=== PATIENT | male | born 1970 | race Caucasian/White ===

== ENCOUNTER 2021-02-16 05:27 | Emergency (ER) | payer SELFPAY ==
[~2021-02-16] VITALS: Ht 182 cm; Wt 117.9 kg
[2021-02-16] MEDS ORDERED: LACTATED RINGERS 1,000 ML IV STA (05:30)
[2021-02-16] MEDS ORDERED: LACTATED RINGERS 1,000 ML IV ONE (05:30)
[2021-02-16] MEDS ORDERED: fentaNYL INJ 100 MCG/2 ML AMP IVP ONE (05:30)
[2021-02-16] MEDS ORDERED: ONDANSETRON 4 MG/2 ML (SDV) Z0FRAN IVP ONE (05:30)
[2021-02-16] MEDS ORDERED: FAMOTIDINE 20MG/2ML IV (PEPCID) IVP ONE (05:30)
--- NOTE | 2021-02-16 05:36 | ED Abdominal Pain ---
General Chief Complaint: Abdominal/GI Problems Stated Complaint: N/V/D Source of Information: Patient, EMS Exam Limitations: No Limitations (ROBINA PALENCIA) History of Present Illness Date Seen by Provider: Feb 16, 2021 Time Seen by Provider: 05:20 Initial Comments Patient arrives ER by [facility] from [place], [place] with chief complaint 12 hours of nausea vomiting diarrhea. He started having pain after retching in his chest substernal midline reproducible to direct palpation as well as his low back. His had the same symptoms about a day or so ago and her symptoms dahl ve already resolved. He had no fever or bloody diarrhea or hematemesis. No significant medical history known. He took some Imodium earlier. No abdominal surgeries. No cough, shortness of air, history of coronary disease, hypertension, hyperlipidemia, diabetes. Last use IV meth 2 days ago. (ROBINA PALENCIA) Allergies and Home Medications Allergies Coded Allergies: No Known Drug Allergies (Unverified , 02/16/21) Home Medications Famotidine 20 Mg Tablet, 20 MG PO BID Prescribed by: GREGORY LIN on 02/16/21 0736 Ondansetron 4 Mg Tab.rapdis, 4 MG SL Q4H PRN for NAUSEA/VOMITING Prescribed by: GREGORY LIN on 02/16/21 0736 Patient Home Medication List Home Medication List Reviewed: Yes (ROBINA PALENCIA) Review of Systems Review of Systems Constitutional: No chills; dizziness; No fever EENTM: No Blurred Vision, No Double Vision, No Eye Pain Respiratory: Denies Cough, Denies Shortness of Air Cardiovascular: See HPI, Chest Pain; Denies Edema, Denies Irregular Heart Rate; Lightheadedness Gastrointestinal: Abdominal Pain; Denies Constipated; Diarrhea, Nausea, Poor Fluid Intake, Vomiting Genitourinary: Denies Burning, Denies Discharge Musculoskeletal: see HPI, back pain; No joint pain (ROBINA PALENCIA) All Other Systems Reviewed Negative Unless Noted: Yes (ROBINA PALENCIA) Past Hhsmrjz-Bogsch-Wcxefz Hx Patient Social History Alcohol Use: Denies Use Drug of Choice: IV meth Smoking Status: Current Everyday Smoker (ROBINA PALENCIA) Physical Exam Vital Signs Vital Signs - First Documented 02/16/21 05:27 Temp 35.9 Pulse 90 Resp 22 B/P (MAP) 124/91 (102) O2 Delivery Room Air (GREGORY HARE MD) Vital Signs Capillary Refill : (ROBINA PALENCIA) Height/Weight/BMI Height: '" Weight: lbs. oz. kg; BMI Method: General Appearance: WD/WN, moderate distress (Writhing in pain) HEENT: PERRL/EOMI, normal ENT inspection, pharynx normal Neck: full range of motion, normal inspection Respiratory: lungs clear, normal breath sounds, no respiratory distress, no accessory muscle use Cardiovascular: normal peripheral pulses, regular rate, rhythm, no edema Gastrointestinal: normal bowel sounds (Active), soft, no organomegaly; No guarding, No rebound; tenderness (All 4 quadrants), other (Negative for Quezada sign or McBurney's point rebound tenderness) Extremities: normal range of motion, non-tender, normal capillary refill Neurologic/Psychiatric: alert, normal mood/affect, oriented x 3 Skin: normal color, warm/dry (ROBINA PALENCIA) Progress/Results/Core Measures Results/Orders Lab Results Laboratory Tests Test 02/16/21 05:28 02/16/21 07:25 Range/Units White Blood Count 12.0 H 4.3-11.0 10^3/uL Red Blood Count 6.30 H 4.30-5.52 10^6/uL Hemoglobin 19.3 H 13.3-17.7 g/dL Hematocrit 58 H 40-54 % Mean Corpuscular Volume 93 80-99 fL Mean Corpuscular Hemoglobin 31 25-34 pg Mean Corpuscular Hemoglobin Concent 33 32-36 g/dL Red Cell Distribution Width 13.2 10.0-14.5 % Platelet Count 322 130-400 10^3/uL Mean Platelet Volume 8.6 L 9.0-12.2 fL Immature Granulocyte % (Auto) 1 % Neutrophils (%) (Auto) 74 42-75 % Lymphocytes (%) (Auto) 15 12-44 % Monocytes (%) (Auto) 7 0-12 % Eosinophils (%) (Auto) 3 0-10 % Basophils (%) (Auto) 0 0-10 % Neutrophils # (Auto) 8.9 H 1.8-7.8 10^3/uL Lymphocytes # (Auto) 1.8 1.0-4.0 10^3/uL Monocytes # (Auto) 0.8 0.0-1.0 10^3/uL Eosinophils # (Auto) 0.3 0.0-0.3 10^3/uL Basophils # (Auto) 0.1 0.0-0.1 10^3/uL Immature Granulocyte # (Auto) 0.1 0.0-0.1 10^3/uL Sodium Level 137 135-145 MMOL/L Potassium Level 4.8 3.6-5.0 MMOL/L Chloride Level 100 98-107 MMOL/L Carbon Dioxide Level 21 21-32 MMOL/L Anion Gap 16 H 5-14 MMOL/L Blood Urea Nitrogen 26 H 7-18 MG/DL Creatinine 2.06 H 0.60-1.30 MG/DL Estimat Glomerular Filtration Rate 34 BUN/Creatinine Ratio 13 Glucose Level 161 H 70-105 MG/DL Calcium Level 10.2 H 8.5-10.1 MG/DL Corrected Calcium 8.5-10.1 MG/DL Total Bilirubin 1.2 H 0.1-1.0 MG/DL Aspartate Amino Transf (AST/SGOT) 13 5-34 U/L Alanine Aminotransferase (ALT/SGPT) 21 0-55 U/L Alkaline Phosphatase 124 40-136 U/L Troponin I < 0.028 <0.028 NG/ML C-Reactive Protein High Sensitivity 2.27 H 0.00-0.50 MG/DL Total Protein 8.7 H 6.4-8.2 GM/DL Albumin 4.6 H 3.2-4.5 GM/DL Lipase 29 8-78 U/L Urine Color ORANGE Urine Clarity CLOUDY Urine pH 5.0 5-9 Urine Specific [place] >=1.030 1.016-1.022 Urine Protein 2+ H NEGATIVE Urine Glucose (UA) NEGATIVE NEGATIVE Urine Ketones TRACE H NEGATIVE Urine Nitrite NEGATIVE NEGATIVE Urine Bilirubin 2+ H NEGATIVE Urine Urobilinogen 1.0 < = 1.0 MG/DL Urine Leukocyte Esterase NEGATIVE NEGATIVE Urine RBC (Auto) TRACE-I NEGATIVE Urine RBC RARE /HPF Urine WBC 0-2 /HPF Urine Crystals PRESENT H /LPF Urine Calcium Oxalate Crystals MODERATE H /LPF Urine Bacteria MODERATE H /HPF Urine Casts PRESENT /LPF Urine Hyaline Casts 10-25 H /LPF Urine Mucus NEGATIVE /LPF Urine Culture Indicated NO (GREGORY HARE MD) My Orders Orders - GREGORY HARE MD Tramadol Tablet (Ultram Tablet) (02/16/21 07:30) Acetaminophen Tablet (Tylenol Tablet) (02/16/21 07:30) (GREGORY HARE MD) Medications Given in ED Current Medications Medications Dose Ordered Sig/Melany Route Start Time Stop Time Status Last Admin Dose Admin Acetaminophen 1,000 mg ONCE ONCE PO 02/16/21 07:30 02/16/21 07:31 DC 02/16/21 07:35 1,000 MG Famotidine 20 mg ONCE ONCE IVP 02/16/21 05:30 02/16/21 05:32 DC 02/16/21 05:51 20 MG Fentanyl Citrate 50 mcg ONCE ONCE IVP 02/16/21 05:30 02/16/21 05:32 DC 02/16/21 05:50 50 MCG Lactated Ringer's 1,000 ml @ 0 mls/hr Q0M ONCE IV 02/16/21 05:30 02/16/21 05:32 DC 02/16/21 07:11 1,000 MLS/HR Ondansetron HCl 8 mg ONCE ONCE IVP 02/16/21 05:30 02/16/21 05:32 DC 02/16/21 05:47 8 MG Tramadol HCl 50 mg ONCE ONCE PO 02/16/21 07:30 02/16/21 07:31 DC 02/16/21 07:34 50 MG (GREGORY HARE MD) Vital Signs/I&O 02/16/21 05:27 Temp 35.9 Pulse 90 Resp 22 B/P (MAP) 124/91 (102) O2 Delivery Room Air (GREGORY HARE MD) Progress Progress Note : Time: 05:35 Progress Note Patient appears to have gastroenteritis and colitis and since his got over it and 24 hours it is likely a virus. We will give him 8 of Zofran, 50 of fentanyl and 2 L of lactated Ringer's. We will check some basic labs and urine. Because he is complaining of chest pain which is most likely esophagitis after the vomiting will get an EKG, chest x-ray to look for widened mediastinum and troponin and BNP. (ROBINA PALENCIA) Progress Note #1: Time: 06:23 Progress Note I assumed care of this patient from Dr. Palencia at 06:00. Patient feels significantly improved since receiving Pepcid, Zofran, and fentanyl. He is currently receiving the first of 2 L ordered. Labs have been reviewed and seem consistent with dehydration including an elevation in creatinine and BUN suggestive of acute kidney injury. A baseline creatinine is not available. He is tolerating ice chips. We will complete the 2 L bolus and ensure he is able to urinate before determining disposition. Progress Note #2: Time: 07:36 Progress Note Patient is receiving his second liter of IV fluid. He requests something to treat exacerbation of his chronic back pain. Ultram and Tylenol were given. Patient was strongly encouraged to follow-up in the outpatient setting. He expresses some interest in discontinuing methamphetamine use. The treatment program at [facility] was recommended. He is tolerating water and ice at this time without difficulty. He was able to produce urine. See discharge instructions for further discussion. (GREGORY HARE MD) Initial ECG Impression Date: Feb 16, 2021 Initial ECG Impression Time: 05:39 Initial ECG Rate: 108 Initial ECG Rhythm: S.Tach Initial ECG Intervals: Normal Initial ECG Impression: Normal Initial ECG Comparisson: No Previous ECG Available Comment Normal sinus tachycardia without clinically relevant ST changes. (ROBINA PALENCIA) Diagnostic Imaging Diagonstic Imaging: Xray Plain Films/CT/US/NM/MRI: chest Comments No acute cardiopulmonary process on 1 view chest x-ray Reviewed: Reviewed by Me (ROBINA PALENCIA) Comments NAME: DE LEON [facility] REC#: [id number] PT STATUS: REG ER : 1970 PHYSICIAN: ROBINA PALENCIA MD ADMIT DATE: 02/16/21/ER Draft Date of Exam:02/16/21 CHEST 1 VIEW, AP/PA ONLY PATIENT HISTORY: cp nvd. TECHNIQUE: Single frontal view of the chest. COMPARISON: None FINDINGS: The lung volumes are normal. No focal consolidation is seen. No large pleural effusion or pneumothorax is seen. The cardiomediastinal silhouette is normal in size and contour. No acute osseous abnormality is seen. IMPRESSION: No acute pulmonary abnormality seen. Dictated on workstation # [id number] Dict: 02/16/21 0626 Trans: 02/16/21 0628 [facility] [id number] Interpreted by: ANILA SPENCE MD (GREGORY HARE MD) Departure Impression Primary Impression: Nausea vomiting and diarrhea Additional Impressions: Acute kidney injury IV drug abuse Disposition: 01 HOME, SELF-CARE Condition: Improved Departure-Patient Inst. Decision time for Depature: 07:33 (GREGORY HARE MD) Patient Instructions: Nausea and Vomiting, Adult Add. Discharge Instructions: Adhere to a clear liquid diet today. Tomorrow gradually advance your diet with small quantities of bland food as tolerated. Drink plenty of clear liquids. Your urine should be light yellow to clear in color if you are appropriately hydrated. Use the Zofran (ondansetron) as prescribed for nausea vomiting. Also take Pepcid (famotidine) twice a day for the next 10 days. Follow-up with a primary care provider as soon as possible. Please call today for an appointment. You should be seen within 1 week. [facility] may be a good resource for you because of their comprehensive medical, mental health, and substance abuse programs. Their number is [phone]. You may take Tylenol (acetaminophen) up to 1000 mg every 6 hours as needed for p ain. Call with questions or concerns. Return to the emergency room if you have worsening symptoms. All discharge instructions reviewed with patient and/or family. Voiced understanding. Scripts Ondansetron (Ondansetron Odt) 4 Mg Tab.rapdis 4 MG SL Q4H PRN for NAUSEA/VOMITING, #10 TAB Prov: GREGORY HARE MD 02/16/21 Famotidine (Pepcid) 20 Mg Tablet 20 MG PO BID, #20 TAB Prov: GREGORY HARE MD 02/16/21 ROBINA PALENCIA Feb 16, 2021 05:36 GREGORY HARE MD Feb 16, 2021 06:25
[2021-02-16 05:43] LABS: BASOPHILS # (AUTO) 0.1 10^3/uL (0.0-0.1); BASOPHILS % (AUTO) 0 % (0-10); EOSINOPHILS # (AUTO) 0.3 10^3/uL (0.0-0.3); EOSINOPHILS % (AUTO) 3 % (0-10); HEMATOCRIT 58 % (40-54); HEMOGLOBIN 19.3 g/dL (13.3-17.7); LYMPHOCYTES # (AUTO) 1.8 10^3/uL (1.0-4.0); LYMPHOCYTES % (AUTO) 15 % (12-44); MEAN CORPUSCULAR HEMOGLOBIN 31 pg (25-34); MEAN CORPUSCULAR HGB CONC 33 g/dL (32-36); MEAN CORPUSCULAR VOLUME 93 fL (80-99); MEAN PLATELET VOLUME 8.6 fL (9.0-12.2); MONOCYTES # (AUTO) 0.8 10^3/uL (0.0-1.0); MONOCYTES % (AUTO) 7 % (0-12); NEUTROPHILS # (AUTO) 8.9 10^3/uL (1.8-7.8); NEUTROPHILS % (AUTO) 74 % (42-75); PLATELET COUNT 322 10^3/uL (130-400)
[2021-02-16 05:51] LABS: ALBUMIN 4.6 GM/DL (3.2-4.5); CHLORIDE 100 MMOL/L (98-107); POTASSIUM 4.8 MMOL/L (3.6-5.0); SODIUM 137 MMOL/L (135-145)
[2021-02-16 05:52] LABS: CALCIUM 10.2 MG/DL (8.5-10.1)
[2021-02-16 05:53] LABS: GLUCOSE 161 MG/DL (70-105); TOTAL PROTEIN 8.7 GM/DL (6.4-8.2)
[2021-02-16 05:54] LABS: CARBON DIOXIDE 21 MMOL/L (21-32)
[2021-02-16 05:55] LABS: BILIRUBIN,TOTAL 1.2 MG/DL (0.1-1.0)
[2021-02-16 05:57] LABS: ALKALINE PHOSPHATASE 124 U/L (40-136); CREATININE SERUM 2.06 MG/DL (0.60-1.30); GFR ESTIMATED 34
[2021-02-16 05:58] LABS: BUN/CREATININE RATIO 13
[2021-02-16 06:00] LABS: ALANINE AMINOTRANSFERASE 21 U/L (0-55); LIPASE 29 U/L (8-78)
--- NOTE | 2021-02-16 06:29 | Diagnostic Imaging Report ---
PATIENT HISTORY: cp nvd. TECHNIQUE: Single frontal view of the chest. COMPARISON: None FINDINGS: The lung volumes are normal. No focal consolidation is seen. No large pleural effusion or pneumothorax is seen. The cardiomediastinal silhouette is normal in size and contour. No acute osseous abnormality is seen. IMPRESSION: No acute pulmonary abnormality seen. Dictated by: Dictated on workstation # [id number]
[2021-02-16] MEDS ORDERED: ACETAMINOPHEN 500 MG TAB (TYLENOL) PO ONE (07:30)
[2021-02-16 07:32] LABS: CLARITY,URINE CLOUDY; COLOR,URINE ORANGE; GLUCOSE, URINE (UA) NEGATIVE (NEGATIVE); KETONES,URINE TRACE (NEGATIVE); LEUKOCYTE ESTERASE ,URINE NEGATIVE (NEGATIVE); NITRITE,URINE NEGATIVE (NEGATIVE); PROTEIN,URINE 2+ (NEGATIVE)
[2021-02-16] MEDS ORDERED: ONDA4TAB11 SL (07:36)
[2021-02-16] MEDS ORDERED: FAMO-119 PO (07:36)
[2021-02-16 07:45] LABS: BACTERIA,URINE MODERATE /HPF; CALCIUM OXALATE CRYSTALS,UR MODERATE /LPF; RBC,URINE RARE /HPF; WBC,URINE 0-2 /HPF
[2021-02-16 07:47] LABS: BILIRUBIN,URINE 2+ (NEGATIVE)
[2021-02-16 08:34] VITALS: BP 119/88
== END 2021-02-16 08:34 | disposition home or self-care (01) ==
LOC: ER 05:29
DX: R11.2 Nausea with vomiting, unspecified (principal); R19.7 Diarrhea, unspecified; N17.9 Acute kidney failure, unspecified; F19.10 Other psychoactive substance abuse, uncomplicated; I10 Essential (primary) hypertension; E11.9 Type 2 diabetes mellitus without complications; F17.200 Nicotine dependence, unspecified, uncomplicated
CPT/HCPCS: 36415; 71045; 80053; 81000; 83690; 84484; 85025; 86141; 93005; 96361; 96374; 96375

== ENCOUNTER → 2021-03-09 | Emergency (ER) | payer SELFPAY ==
[~2021-03-09] MED LIST: FAMO-119 PO; ONDA4TAB11 SL
== END ==
LOC: EDUNIT# 00:13 → ER 00:14
DX: R11.10 Vomiting, unspecified (principal); R10.9 Unspecified abdominal pain; R19.7 Diarrhea, unspecified